=== PATIENT | male | born 1995 | race Asian ===

== ENCOUNTER 2020-04-27 01:47 | Emergency (ER) | payer OTHER ==
[2020-04-27 04:34] LABS: HEMATOCRIT 43.7 % (42.0-52.0); HEMOGLOBIN 15.1 g/dl (13.5-18.0); MEAN CELL VOLUME 81 fl (80.0-100.0); MEAN CORPUSCULAR HEMOGLOBIN 28 pg (27.0-31.0); MEAN CORPUSCULAR HGB CONC 35 g/dl (33.0-37.0); MEAN PLATELET VOLUME 11.4 fl (7.4-10.4); PLATELET COUNT 156 K/mm3 (130-400); RED BLOOD COUNT 5.42 M/mm3 (4.20-5.60); REDCELL DISTRIBUTION WIDTH-CV 12.8 % (11.5-14.5)
[2020-04-27 04:52] LABS: BILIRUBIN,TOTAL 0.4 mg/dL (0.0-1.0); C-REACTIVE PROTEIN 0.9 mg/dL (0.0-0.9); CALCIUM 8.7 mg/dL (8.4-10.2); CREATININE, serum 0.79 (0.66-1.25); POTASSIUM 3.4 mmol/L (3.4-5.0); TOTAL PROTEIN 7.1 gm/dL (6.4-8.2)
[2020-04-27 05:07] LABS: ERYTHROCYTE SEDIMENTATION RATE 2 mm/hr (0-15)
[2020-04-27 05:29] LABS: BAND 6 % (0-10); LYMPHOCYTE 66 % (20.0-51.0); METAMYELOCYTE 1 % (0-0); NEUTROPHILS 11 % (42.0-75.2)
[2020-04-27] MEDS ORDERED: ANTIVERT 25MG25 MG PO (05:33)
[2020-04-27 06:35] VITALS: BP 124/64; PULSE 68; TEMP 98.5
== END 2020-04-27 06:35 | disposition home or self-care (01) ==
LOC: COL.ER 01:47
PROVIDERS: Emergency Medicine
DX: R42 Dizziness and giddiness (principal); R51 Headache; R53.83 Other fatigue; M79.10 Myalgia, unspecified site
CPT/HCPCS: J1885; J7030